=== PATIENT | female | born 1975 ===

== ENCOUNTER 2018-02-25 18:15 | Emergency (ER) | payer SELFPAY ==
[2018-02-25 18:36] VITALS: BP 144/94; PULSE 80; TEMP 98.1; O2SAT 100
[2018-02-25] MEDS ORDERED: Albuterol-Ipratrop 3 mg / 0.5 (3 ml) UD ONE ×3 (18:43→19:49)
[2018-02-25 18:57] LABS: HCG,QUALITATIVE URINE NEGATIVE (NEGATIVE)
[2018-02-25 18:58] LABS: SQUAMOUS EPITHIAL 9 /hpf (0-5); URINE BACTERIA RARE (<OCC); URINE BILIRUBIN NEGATIVE (NEGATIVE); URINE BLOOD 2+ (NEGATIVE); URINE CALCIUM OXALATE CRYSTALS OCC /hpf (<OCC); URINE CLARITY Clear (Clear); URINE COLOR Yellow (YELLOW); URINE GLUCOSE (UA) NORMAL (Normal); URINE LEUKOCYTE ESTERASE 1+ Leu/uL (Negative); URINE PROTEIN NEGATIVE (NEGATIVE); URINE UROBILINOGEN NORMAL mg/dL (0.2-1.0)
[2018-02-25] MEDS ORDERED: Albuterol-Ipratrop 3 mg / 0.5 (3 ml) UD INH STA ×3 (19:01→19:46)
[2018-02-25] MEDS ORDERED: MethylPREDNISolone 40 mg Vial ONE (19:57)
--- NOTE | 2018-02-25 20:10 | C.PDOC ---
History Of Present Illness 42yo female, with history of asthma, presents to ED for evaluation for shortness of breath since earlier today. She states she used her inhaler, and is currently on the 3rd day of a prednisone regimen (20 mg per day) from a friend, with no relief of symptoms. Notes this feel similar to her past asthma exacerbations. She reports she has had hospital admissions in the past due to asthma but denies any intubations; patient states every year in the month of February , she has these symptoms. Pt also c/o lower abdominal pain, with frequency and dysuria. Notes h/o of UTI and states this feels the same. She denies any vaginal bleeding or discharge. Patient also denies any fever, chills, chest pain , headache, neck pain, abdominal pain, or rash. Time Seen by Provider: 02/25/18 18:40 Chief Complaint (Nursing): Shortness Of Breath History Per: Patient History/Exam Limitations: no limitations Onset/Duration Of Symptoms: Days Current Symptoms Are (Timing): Still Present Associated Symptoms: denies: Fever, Chills Past Medical History Reviewed: Historical Data, Nursing Documentation, Vital Signs Vital Signs: Last Vital Signs Temp 98.1 F 02/25/18 18:31 Pulse 80 02/25/18 18:31 Resp 20 02/25/18 20:39 BP 144/94 H 02/25/18 18:31 Pulse Ox 100 02/25/18 20:22 - Medical History PMH: Asthma Surgical History: No Surg Hx Family History: States: No Known Family Hx - Social History Hx Alcohol Use: No Hx Substance Use: No - Immunization History Hx Tetanus Toxoid Vaccination: No Hx Influenza Vaccination: No Hx Pneumococcal Vaccination: No Review Of Systems Except As Marked, All Systems Reviewed And Found Negative. Constitutional: Negative for: Fever, Chills Cardiovascular: Negative for: Chest Pain Respiratory: Positive for: Shortness of Breath Gastrointestinal: Positive for: Abdominal Pain Genitourinary: Positive for: Dysuria, Frequency. Negative for: Hematuria, Vaginal Discharge, Vaginal Bleeding Physical Exam - Physical Exam Appears: Non-toxic, No Acute Distress Skin: Normal Color, Warm, Dry Head: Atraumatic, Normacephalic Eye(s): bilateral: Normal Inspection, EOMI Nose: Normal Oral Mucosa: Moist Throat: Normal, No Erythema, No Exudate Neck: Normal ROM, Supple Lymphatic: Normal Exam Chest: Symmetrical Cardiovascular: Rhythm Regular Respiratory: No Accessory Muscle Use, Wheezing (bilateral expitory wheezing) Gastrointestinal/Abdominal: Normal Exam, Soft, No Tenderness Back: Normal Inspection, No CVA Tenderness Extremity: Normal ROM Neurological/Psych: Oriented x3, Normal Speech, Normal Cognition ED Course And Treatment O2 Sat by Pulse Oximetry: 100 (RA) Pulse Ox Interpretation: Normal Progress Note: Patient given Duoneb, 3ml INH x 3 and Solumedrol 125mg IV. Urinalysis ordered and reviewed, indicating a UTI. Upon re-evaluation, patient reports improvement in her symtpoms. Repeat lung exam shows wheezing improved, respirations are easy and unlabored. Some wheezing persists, pt was offered admission. Pt declines noting she feels well. Patient instructed to take meds as prescribed and to follow up with her PMD in 2-3 days. Instructed to return to ER if symtpoms persist or worsen. Disposition - Disposition Disposition: HOME/ ROUTINE Disposition Time: 20:08 Condition: STABLE Additional Instructions: Follow up with your primary medical doctor or clinic in 2-5 days for further evaluation. Take medications as prescribed. Return to the emergency department at any time if symptoms persist or worsen. 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 - Scribe Statement The provider has reviewed the documentation as recorded by the Scribe (Lidia Flores) Provider Attestation: All medical record entries made by the Scribe were at my direction and personally dictated by me. I have reviewed the chart and agree that the record accurately reflects my personal performance of the history, physical exam, medical decision making, and the department course for this patient. I have also personally directed, reviewed, and agree with the discharge instructions and disposition.
--- NOTE | 2018-02-25 20:12 | C.PDOC ---
Time Seen by Provider: 02/25/18 18:40 Chief Complaint (Nursing): Shortness Of Breath Past Medical History Vital Signs: Last Vital Signs Temp 98.1 F 02/25/18 18:31 Pulse 80 02/25/18 18:31 Resp 16 02/25/18 18:39 BP 144/94 H 02/25/18 18:31 Pulse Ox 100 02/25/18 18:31 - Medical History PMH: Asthma - Social History Hx Alcohol Use: No Hx Substance Use: No - Immunization History Hx Tetanus Toxoid Vaccination: No Hx Influenza Vaccination: No Hx Pneumococcal Vaccination: No ED Course And Treatment O2 Sat by Pulse Oximetry: 100 Disposition - Disposition Disposition: HOME/ ROUTINE Disposition Time: 20:08 Condition: STABLE Additional Instructions: Follow up with your primary medical doctor or clinic in 2-5 days for further evaluation. Take medications as prescribed. Return to the emergency department at any time if symptoms persist or worsen. Prescriptions: Nitrofurantoin Macrocrystals [Macrobid] 1 cap PO BID #14 cap predniSONE [Prednisone] 40 mg PO DAILY #6 tab Instructions: Asthma, Adult (DC) Forms: [facility] ([place]) - Clinical Impression Clinical Impression: Asthma exacerbation
[2018-02-25 20:39] VITALS: RESP 20
== END 2018-02-25 20:39 | disposition home or self-care (01) ==
LOC: C.ER 18:15
DX: J45.901 Unspecified asthma with (acute) exacerbation (principal); N39.0 Urinary tract infection, site not specified
CPT/HCPCS: 81001; 84703; 87086; 87181; 94150; 96372; 99284; J2930